=== PATIENT | male | born 1995 | race Caucasian/White ===

== ENCOUNTER 2018-12-28 18:30 | Emergency (ER) | payer OTHER ==
[~2018-12-28] VITALS: Ht 165.1 cm; Wt 54.5 kg
[2018-12-28] MEDS ORDERED: LIDOCAINE 5% TRANSDERMAL PATCH TD ONE (19:30)
[2018-12-28] MEDS ORDERED: METHOCARBAMOL 500 MG TABLET PO ONE (19:30)
[2018-12-28] MEDS: KETOROLAC TROMETHAMINE 30 MG/ML VIAL IM ONE ×2 (20:10→21:17)
[2018-12-28 21:20] VITALS: BP 121/53
== END 2018-12-28 21:24 | disposition home or self-care (01) ==
LOC: EMS 18:31
DX: M54.6 Pain in thoracic spine (principal); R03.0 Elevated blood-pressure reading, without diagnosis of hypertension; F12.90 Cannabis use, unspecified, uncomplicated
CPT/HCPCS: 99283; J1885

== ENCOUNTER 2020-07-10 03:31 | Emergency (ER) | payer MEDICAID, OTHER ==
[~2020-07-10] VITALS: Ht 165.1 cm; Wt 54.5 kg
[2020-07-10 06:00] VITALS: BP 141/83
== END 2020-07-10 06:34 | disposition home or self-care (01) ==
LOC: EMS 03:31
DX: R07.9 Chest pain, unspecified (principal); R20.0 Anesthesia of skin; F12.90 Cannabis use, unspecified, uncomplicated
CPT/HCPCS: 93005; 71045-TC